=== PATIENT | female | born 1955 ===

== ENCOUNTER 2016-10-28 08:21 | Emergency (ER) | payer OTHER ==
[2016-10-28 08:29] VITALS: BMI 34.2
[2016-10-28] MEDS ORDERED: Sodium Chloride 0.9% 1,000 ML IV STA (08:52)
[2016-10-28 09:24] LABS: URINE BILIRUBIN NEGATIVE (NEGATIVE); URINE BLOOD TRACE-INTACT (NEGATIVE); URINE GLUCOSE (UA) NEGATIVE (NEGATIVE); URINE KETONE NEGATIVE (NEGATIVE); URINE LEUKOCYTE ESTERASE NEGATIVE Leu/uL (NEGATIVE); URINE PROTEIN 30 mg/dL (<30 mg/dL); URINE UROBILINOGEN 0.2 E.U./dL (<1 E.U./dL)
--- NOTE | 2016-10-28 09:33 | ED PDOC ---
Arrival/HPI - General Chief Complaint: Abdominal Pain Time Seen by Provider: 10/28/16 08:52 Historian: Patient, Family - History of Present Illness Narrative History of Present Illness (Text): 10/28/16 09:06 A 60 year old female, whose past medical history includes gastritis and cholelithiasis, presents to the emergency department complaining of nausea, vomiting and diarrhea since yesterday. Patient reports yesterday morning after eating a cheese and mayonnaise sandwich the symptoms began. She notes some blood in her stool. Patient says she has chronic left breast pain and abdominal pain during a bowel movement but denies any fever, recent sick contacts or any other complaints at this time. Patient does drinking socially but does not smoke or use drugs. PMD: None Time/Duration: 24 hours Symptom Onset: Sudden Symptom Course: Unchanged Quality: Other Activities at Onset: Rest Modifying Factors (Text): symptoms appear after eating cheese and mayonnaise sandwich Context: Home Past Medical History - Provider Review Nursing Documentation Reviewed: Yes - Cardiac Hx Cardiac Disorders: No - Pulmonary Hx Respiratory Disorders: Yes Hx Asthma: Yes - Neurological Hx Neurological Disorder: No - HEENT Hx HEENT Disorder: No - Renal Hx Renal Disorder: No - Endocrine/Metabolic Hx Endocrine Disorders: No - Hematological/Oncological Hx Blood Disorders: No - Integumentary Hx Dermatological Disorder: No - Musculoskeletal/Rheumatological Hx Musculoskeletal Disorders: No - Gastrointestinal Hx Gastrointestinal Disorders: Yes Hx Gastritis: Yes - Genitourinary/Gynecological Hx Genitourinary Disorders: No - Psychiatric Hx Psychophysiologic Disorder: No Hx Substance Use: No - Surgical History Hx Section: Yes Hx Hysterectomy: Yes Other/Comment: Unilateral oophorectomy Family/Social History - Physician Review Nursing Documentation Reviewed: Yes Family/Social History: No Known Family HX Smoking Status: Never Smoked Hx Alcohol Use: Yes Frequency of alcohol use: Socially Hx Substance Use: No Allergies/Home Meds Allergies/Adverse Reactions: Allergies aspirin Adverse Reaction (Verified 10/28/16 08:31) ANAPHYLAXIS Penicillins Adverse Reaction (Verified 10/28/16 08:31) ANAPHYLAXIS Home Medications: Home Meds Medication Instructions Recorded Confirmed Omeprazole 40 mg PO DAILY 08/19/16 10/28/16 Review of Systems - Physician Review All systems were reviewed & negative as marked: Yes - Review of Systems Constitutional: absent: Fevers Gastrointestinal: Abdominal Pain, Diarrhea, Nausea, Vomiting, Hematochezia Physical Exam Vital Signs Reviewed: Yes Vital Signs Temp Pulse Resp BP Pulse Ox 10/28/16 10:05 98.0 F 61 18 113/68 96 10/28/16 08:28 98.5 F 69 16 147/73 95 Temperature: Afebrile Blood Pressure: Normal Pulse: Regular Respiratory Rate: Normal Appearance: Positive for: Well-Appearing, Non-Toxic, Comfortable Pain Distress: None Mental Status: Positive for: Alert and Oriented X 3 - Systems Exam Head: Present: Atraumatic, Normocephalic Pupils: Present: PERRL Extroacular Muscles: Present: EOMI Conjunctiva: Present: Normal Mouth: Present: Dry Neck: Present: Normal Range of Motion Respiratory/Chest: Present: Clear to Auscultation, Good Air Exchange. No: Respiratory Distress, Accessory Muscle Use Cardiovascular: Present: Regular Rate and Rhythm, Normal S1, S2. No: Murmurs Abdomen: No: Tenderness, Distention, Normal Bowel Sounds (slight hyperactive), Peritoneal Signs, Rebound, Guarding Back: Present: Normal Inspection Upper Extremity: Present: Normal Inspection. No: Cyanosis, Edema Lower Extremity: Present: Normal Inspection. No: Edema Neurological: Present: GCS=15, CN II-XII Intact, Speech Normal Skin: Present: Warm, Dry, Normal Color. No: Rashes Psychiatric: Present: Alert, Oriented x 3, Normal Insight, Normal Concentration Medical Decision Making ED Course and Treatment: 10/28/16 09:06 Impression: A 60 year old female with nausea, vomiting, diarrhea, and hematochezia. Differential Diagnosis include but are not limited to: Gastritis vs. GI bleed Plan: -- EKG -- Labs -- Urinalysis -- Pepcid, Zofran and IV Fluids -- Reassess and disposition Prior Visits: Notes and results from previous visits were reviewed. The patient last presented to the emergency department on 08/19/16 for evaluation of chest pain. Progress Notes: EKG: Ordered, reviewed, and independently interpreted the EKG. Rate : 72 BPM Rhythm : NSR Interpretation : Left axis deviation, No ST elevations. 10/28/16 11:28 Pt feels much better. Will d/c home. - Lab Interpretations Lab Results: 10/28/16 08:50 10/28/16 08:50 Lab Results 10/28/16 09:00: Urine Color Yellow, Urine Appearance Clear, Urine pH 6.0, Ur Specific [place] 1.025, Urine Protein 30 H, Urine Glucose (UA) Negative, Urine Ketones Negative, Urine Blood Trace-intact H, Urine Nitrate Negative, Urine Bilirubin Negative, Urine Urobilinogen 0.2, Ur Leukocyte Esterase Negative, Urine RBC 1 - 3, Urine WBC 0 - 2, Ur Epithelial Cells 6 - 8, Amorphous Sediment Few, Urine Bacteria Many 10/28/16 08:50: WBC 7.4 D, RBC 4.67, Hgb 13.6, Hct 40.8, MCV 87.4, MCH 29.1, MCHC 33.3, RDW 13.0, Plt Count 247, MPV 11.0, Gran % 66.4, Lymph % (Auto) 28.2, [place] % (Auto) 4.9, Eos % (Auto) 0.4 L, Baso % (Auto) 0.1, Gran # 4.89, Lymph # 2.1, S[place]ent # 0.4, Eos # 0.0, Baso # 0.01, PT 10.7, INR 0.99, APTT 26.9, Sodium 137, Potassium 3.7, Chloride 99, Carbon Dioxide 25, Anion Gap 17, BUN 13, Creatinine 0.6, Est GFR ( Amer) > 60, Est GFR (Non-Af Amer) > 60, Random Glucose 136 H, Calcium 9.5, Total Bilirubin 1.0, AST 32, ALT 19, Alkaline Phosphatase 70, Lactate Dehydrogenase 483, Total Creatine Kinase 154, Troponin I < 0.01, Total Protein 9.1 H, Albumin 4.3, Globulin 4.8, Albumin/Globulin Ratio 0.9 L, Amylase 82, Lipase 105 I have reviewed the lab results: Yes - Medication Orders Current Medication Orders: Sodium Chloride (Sodium Chloride 0.9%) 1,000 mls @ 100 mls/hr IV .Q10H STA Stop: 10/28/16 18:51 Last Admin: 10/28/16 09:36 Dose: 100 MLS/HR eMAR Start Stop Document 10/28/16 09:36 NGOZI (Rec: 10/28/16 09:37 [id number]) Intravenous Solution Start Date 10/28/16 Start Time 09:36 Discontinued Medications Famotidine (Pepcid) 20 mg IVP STAT STA Stop: 10/28/16 09:13 Last Admin: 10/28/16 09:37 Dose: 20 MG IVP Administration Document 10/28/16 09:37 SZMel (Rec: 10/28/16 09:37 SZA [id number]) Charges for Administration # of IVP Administrations 1 Ondansetron HCl (Zofran Inj) 4 mg IVP STAT STA Stop: 10/28/16 08:53 Last Admin: 10/28/16 09:37 Dose: 4 MG IVP Administration Document 10/28/16 09:37 SZA (Rec: 10/28/16 09:37 A [id number]) Charges for Administration # of IVP Administrations 1 - Scribe Statement The provider has reviewed the documentation as recorded by the Scribe Orin Fine Provider Scribe Attestation: All medical record entries made by the Scribe were at my direction and personally dictated by me. I have reviewed the chart and agree that the record accurately reflects my personal performance of the history, physical exam, medical decision making, and the department course for this patient. I have also personally directed, reviewed, and agree with the discharge instructions and disposition. Disposition/Present on Arrival - Present on Arrival Any Indicators Present on Arrival: No History of DVT/PE: No History of Uncontrolled Diabetes: No Urinary Catheter: No History of Decub. Ulcer: No History Surgical Site Infection Following: None - Disposition Have Diagnosis and Disposition been Completed?: Yes Diagnosis: Gastroenteritis Disposition: HOME/ ROUTINE Disposition Time: 11:24 Patient Plan: Discharge Condition: STABLE Discharge Instructions (ExitCare): Gastroenteritis (ED) Print Language: IRAQI Additional Instructions: Ms. Tristan, thank you for letting us take care of you today. Return to the ER if your symptoms worsen, or if any problems. Take the medications listed below as prescribed. Follow up at our [facility] next week for a re-evaluation. Prescriptions: Omeprazole 1 tab PO DAILY #30 capsule. [place]: [facility] [place] [facility] [place] - Follow up with primary
[2016-10-28 09:35] LABS: ADD MANUAL DIFF? NO
[2016-10-28 09:38] LABS: URINE APPEARANCE CLEAR (CLEAR); URINE COLOR YELLOW (YELLOW)
[2016-10-28 09:39] LABS: BASO # 0.01 K/mm3 (0.0-2.0); BASO % 0.1 % (0.0-3.0); EOS % 0.4 % (1.5-5.0); GRAN # 4.89 (1.4-6.5); GRAN % 66.4 % (50.0-68.0); HEMATOCRIT 40.8 % (36.0-48.0); LYMPH # 2.1 (1.2-3.4); LYMPH % 28.2 % (22.0-35.0); MEAN CELL VOLUME 87.4 fL (80.0-105.0); MEAN CORPUSCULAR HEMOGLOBIN 29.1 pg (25.0-35.0); MEAN CORPUSCULAR HGB CONC 33.3 g/dl (31.0-37.0); MONO # 0.4 (0.1-0.6); MONO % 4.9 % (1.0-6.0); PLATELET COUNT 247 10^3/uL (120.0-450.0); WHITE BLOOD COUNT 7.4 10^3/ul (4.5-11.0)
[2016-10-28 09:48] LABS: ALB/GLOB RATIO 0.9 (1.1-1.8); ALKALINE PHOSPHATASE 70 U/L (38-133); ALT/SGPT 19 U/L (7-56); AMYLASE 82 U/L (35-125); AST/SGOT 32 U/L (15-39); BLOOD UREA NITROGEN 13 mg/dL (7-21); CALCIUM 9.5 mg/dL (8.4-10.5); CARBON DIOXIDE 25 mmol/L (21-33); CHLORIDE 99 mmol/L (98-107); GFR AFRICAN-AMERICAN > 60; GLUCOSE,RANDOM 136 mg/dL (70-110); INR 0.99 (0.93-1.08); LIPASE 105 U/L (23-300); PARTIAL THROMBOPLASTIN TIME 26.9 Seconds (23.7-30.8); POTASSIUM 3.7 mmol/L (3.6-5.0); SODIUM 137 mmol/L (132-148); TOTAL PROTEIN 9.1 g/dL (5.8-8.3)
[2016-10-28 09:48] LABS: URINE AMORPHOUS SEDIMENT FEW; URINE BACTERIA MANY (NEG); URINE WBC 0 - 2 /hpf (0-6)
[2016-10-28 10:01] LABS: TROPONIN I < 0.01 ng/mL
[2016-10-28 11:56] VITALS: BP 120/76; PULSE 80; RESP 16; TEMP 98.2; O2SAT 98
--- NOTE | 2016-10-28 17:28 | CARD ---
APPROVED REPORT EKG Measurement Heart [id number] <Conclusion> Normal sinus rhythm Left axis deviation T wave abnormality, consider anterior ischemia Abnormal ECG
== END 2016-10-28 12:00 | disposition home or self-care (01) ==
LOC: ED 08:21
DX: K52.9 Noninfective gastroenteritis and colitis, unspecified (principal)
CPT/HCPCS: 80053; 81001; 82150; 82550; 83615; 83690; 84484; 85025; 85610; 85730; 93005; 96361; 96374; 96375; 99283; J2405; J7040

== ENCOUNTER 2017-01-12 06:35 | Emergency (ER) | payer OTHER ==
[2017-01-12 06:36] VITALS: BMI 34.2
[2017-01-12 06:45] VITALS: BP 127/76; PULSE 62; RESP 16; TEMP 98.5; O2SAT 96
--- NOTE | 2017-01-12 08:04 | ED PDOC ---
Arrival/HPI - General Chief Complaint: Back Pain Time Seen by Provider: 01/12/17 07:22 Historian: Patient, Supervisor [employer] (Nurse Calderon) - History of Present Illness Symptom Onset: Sudden Symptom Course: Unchanged Activities at Onset: Rest Context: Home Past Medical History - Provider Review Nursing Documentation Reviewed: Yes - Cardiac Hx Cardiac Disorders: No - Pulmonary Hx Respiratory Disorders: Yes Hx Asthma: Yes - Neurological Hx Neurological Disorder: No - HEENT Hx HEENT Disorder: No - Renal Hx Renal Disorder: No - Endocrine/Metabolic Hx Endocrine Disorders: No - Hematological/Oncological Hx Blood Disorders: No - Integumentary Hx Dermatological Disorder: No - Musculoskeletal/Rheumatological Hx Musculoskeletal Disorders: No - Gastrointestinal Hx Gastrointestinal Disorders: Yes Hx Gastritis: Yes - Genitourinary/Gynecological Hx Genitourinary Disorders: No - Psychiatric Hx Psychophysiologic Disorder: No Hx Substance Use: No - Surgical History Hx Section: Yes Hx Hysterectomy: Yes Other/Comment: Unilateral oophorectomy Family/Social History - Physician Review Nursing Documentation Reviewed: Yes Family/Social History: No Known Family HX Smoking Status: Never Smoked Hx Alcohol Use: Yes Hx Substance Use: No Allergies/Home Meds Allergies/Adverse Reactions: Allergies aspirin Adverse Reaction (Verified 10/28/16 08:31) ANAPHYLAXIS Penicillins Adverse Reaction (Verified 10/28/16 08:31) ANAPHYLAXIS Home Medications: Home Meds Medication Instructions Recorded Confirmed Omeprazole 40 mg PO DAILY 08/19/16 10/28/16 Review of Systems - Physician Review All systems were reviewed & negative as marked: Yes Physical Exam Vital Signs Reviewed: Yes Vital Signs Temp Pulse Resp BP Pulse Ox 01/12/17 06:44 98.5 F 62 16 127/76 96 Temperature: Afebrile Blood Pressure: Normal Pulse: Regular Respiratory Rate: Normal Appearance: Positive for: Well-Appearing, Non-Toxic, Comfortable Pain Distress: None Mental Status: Positive for: Alert and Oriented X 3 Medical Decision Making ED Course and Treatment: 01/12/17 08:01 Impression: A 61 year old female with hip pain radiating to legs. Plan: -- Toradol, Flexeril -- Reassess and disposition Prior Visits: Notes and results from previous visits were reviewed. Patient last reported to the emergency department on 10/28/16 for evaluation of nausea, vomiting, diarrhea and hematochezia. Progress Notes: - Medication Orders Current Medication Orders: Discontinued Medications Cyclobenzaprine HCl (Flexeril) 10 mg PO STAT STA Stop: 01/12/17 07:47 Last Admin: 01/12/17 07:52 Dose: 10 mg Ketorolac Tromethamine (Toradol) 30 mg IM STAT STA Stop: 01/12/17 07:47 Last Admin: 01/12/17 07:52 Dose: 30 mg - Scribe Statement The provider has reviewed the documentation as recorded by the Lupis Shah Provider Scribe Attestation: All medical record entries made by the Lupis were at my direction and personally dictated by me. I have reviewed the chart and agree that the record accurately reflects my personal performance of the history, physical exam, medical decision making, and the department course for this patient. I have also personally directed, reviewed, and agree with the discharge instructions and disposition. Disposition/Present on Arrival - Present on Arrival History of DVT/PE: No History of Uncontrolled Diabetes: No Urinary Catheter: No History of Decub. Ulcer: No History Surgical Site Infection Following: None - Disposition
--- NOTE | 2017-01-12 08:05 | ED PDOC ---
Arrival/HPI - General Chief Complaint: Back Pain Time Seen by Provider: 01/12/17 07:22 - History of Present Illness Narrative History of Present Illness (Text): 01/12/17 08:05 Patient presents complaining of back pain. States the location is in the lower region, feels like muscle spasms. Worst with movement and palpation. Pt states this feels identical to previous back pain quality that have happened in the past. states the pain is in the left lower lumbar region, radiating to her LLE. Denies fevers/chills, denies IVDA, denies any lower extremity weakness/numbness/ paresthesias. Pt denies saddle anesthesia. Denies any urinary freq or retention. Denies bowel dysfunction/irregularity/incontinence/constipation. Past Medical History - Provider Review Nursing Documentation Reviewed: Yes - Cardiac Hx Cardiac Disorders: No - Pulmonary Hx Respiratory Disorders: Yes Hx Asthma: Yes - Neurological Hx Neurological Disorder: No - HEENT Hx HEENT Disorder: No - Renal Hx Renal Disorder: No - Endocrine/Metabolic Hx Endocrine Disorders: No - Hematological/Oncological Hx Blood Disorders: No - Integumentary Hx Dermatological Disorder: No - Musculoskeletal/Rheumatological Hx Musculoskeletal Disorders: No - Gastrointestinal Hx Gastrointestinal Disorders: Yes Hx Gastritis: Yes - Genitourinary/Gynecological Hx Genitourinary Disorders: No - Psychiatric Hx Psychophysiologic Disorder: No Hx Substance Use: No - Surgical History Hx Section: Yes Hx Hysterectomy: Yes Other/Comment: Unilateral oophorectomy Family/Social History Family/Social History: Unknown Family HX Smoking Status: Never Smoked Hx Alcohol Use: Yes Hx Substance Use: No Allergies/Home Meds Allergies/Adverse Reactions: Allergies aspirin Adverse Reaction (Verified 10/28/16 08:31) ANAPHYLAXIS Penicillins Adverse Reaction (Verified 10/28/16 08:31) ANAPHYLAXIS Home Medications: Home Meds Medication Instructions Recorded Confirmed Omeprazole 40 mg PO DAILY 08/19/16 10/28/16 Physical Exam - Physical Exam Narrative Physical Exam (Text): - Review of Systems Constitutional: Normal. absent: Fatigue, Weight Change, Fevers Eyes: Normal ENT: denies sore throat, denies tristhmus Respiratory: Normal. absent: SOB, Cough, Sputum Cardiovascular: absent: Chest Pain, Palpitations, Syncope Gastrointestinal: Normal. absent: Abdominal Pain, Diarrhea, Nausea, Vomiting Genitourinary: Normal. absent: Dysuria, Frequency, Hematuria Musculoskeletal: back pain. absent: Arthralgias, Neck Pain Skin: no rashes, no erythema Neurological: absent: Focal Weakness Endocrine: Normal Hemo/Lymphatic: Normal Psychiatric: No suicidal or homicidal ideations Physical exam Patient appears age appropriate in no distress, speaking full sentences without difficulty Increased hypertonicity appreciated in the left lower lumbar region, pain quality reproduced with palpation. No midline tenderness. FROM of pt's cervical , thoracic, lumbar, and sacral regions appreciated, active/passive without any difficulty. Lower extremities with full neurological and vascular intact. Steady gait. - Systems Exam Head: Present: Atraumatic, Normocephalic Pupils: Present: PERRL Extroacular Muscles: Present: EOMI Conjunctiva: Present: Normal Mouth: Present: Moist Mucous Membranes Neck: Present: Normal Range of Motion. No: MIDLINE TENDERNESS, Paraspinal Tenderness Respiratory/Chest: Present: Clear to Auscultation, Good Air Exchange. No: Respiratory Distress, Accessory Muscle Use, Tachypneic Cardiovascular: Present: Regular Rate and Rhythm, Normal S1, S2, Peripheal Pulses Present. No: Murmurs Abdomen: Present: Normal Bowel Sounds. No: Tenderness, Distention, Peritoneal Signs, Rebound, Guarding Back: No: Midline Tenderness Upper Extremity: Present: Normal Inspection. No: Cyanosis, Edema Lower Extremity: Present: Normal Inspection. No: Edema Neurological: Present: GCS=15, Speech Normal, cranial nerves II through XII fully intact with no cerebellar abnormality, neurosensory fully intact. No focal neurological deficits. Skin: Present: Warm, Dry, Normal Color. No: Rashes Lymphatic: Present: OX3, NI, NC Psychiatric: Present: Alert, Oriented x 3, Normal Insight, Normal Concentration Vital Signs Reviewed: Yes Vital Signs Temp Pulse Resp BP Pulse Ox 01/12/17 06:44 98.5 F 62 16 127/76 96 Temperature: Afebrile Blood Pressure: Normal Pulse: Regular Respiratory Rate: Normal Appearance: Positive for: Well-Appearing Pain Distress: None Mental Status: Positive for: Alert and Oriented X 3 Medical Decision Making ED Course and Treatment: pt received Toradol and Flexeril, reported symptomatic relief. Pt states is not driving home. Based on hx and physical, no suspicion for renal involvement, cord impingement or epidural/spinal abscess stable for dc home. instructed not to drive/operate machinery/drink/do drugs with medication in the chart it is noted that patient has an allergy to aspirin. Clarified with pt, she states it is not an allergy, but a stomach ache. Denies any anaphylaxis reactions to nasaids or salicylates. Pt verbalized understands to return to the ER right away for new or worsening symptoms or for inability to f/u with PMD or specialist as instructed. Patient verbalized full agreement with and understanding of discharge instructions. States that he agrees with the plan and disposition. Verbalized and repeated discharge instructions and plan. I have given the patient opportunity to ask any additional questions. - Medication Orders Current Medication Orders: Discontinued Medications Cyclobenzaprine HCl (Flexeril) 10 mg PO STAT STA Stop: 01/12/17 07:47 Last Admin: 01/12/17 07:52 Dose: 10 mg Ketorolac Tromethamine (Toradol) 30 mg IM STAT STA Stop: 01/12/17 07:47 Last Admin: 01/12/17 07:52 Dose: 30 mg Disposition/Present on Arrival - Present on Arrival Any Indicators Present on Arrival: No History of DVT/PE: No History of Uncontrolled Diabetes: No Urinary Catheter: No History of Decub. Ulcer: No History Surgical Site Infection Following: None - Disposition Have Diagnosis and Disposition been Completed?: Yes Diagnosis: Back pain Disposition: HOME/ ROUTINE Disposition Time: 08:01 Patient Plan: Discharge Patient Problems: Current Active Problems Problem Status Onset Back pain Acute Condition: GOOD Discharge Instructions (ExitCare): Back Pain (ED) Additional Instructions: PLEASE RETURN TO THE EMERGENCY DEPARTMENT FOR NEW OR WORSENING SYMPTOMS. RETURN RIGHT AWAY IF YOU CANNOT FOLLOW UP WITH YOUR PRIMARY CARE DOCTOR, CLINIC, OR SPECIALIST IN 1-2 DAYS. Prescriptions: Cyclobenzaprine [Flexeril] 5 mg PO BID #10 tab Ibuprofen [Motrin] 600 mg PO Q8 PRN #12 tab PRN Reason: Pain, Moderate (4-7) Referrals: Daron Kellogg DO [Staff Provider] - Follow up with primary
== END 2017-01-12 08:11 | disposition home or self-care (01) ==
LOC: ED 06:35
DX: M54.9 Dorsalgia, unspecified (principal)
CPT/HCPCS: 96372; 99283; J1885

== ENCOUNTER 2017-01-13 09:02 | Emergency (ER) | payer OTHER ==
[2017-01-13 09:03] VITALS: BMI 34.2
[2017-01-13] MEDS ORDERED: Lidocaine 5% Patch TD STA (09:30)
[2017-01-13] MEDS ORDERED: Oxycodone/Acetaminophen 5/325 mg Tab PO STA (09:30)
--- NOTE | 2017-01-13 09:34 | ED PDOC ---
Arrival/HPI - General Chief Complaint: Back Pain Time Seen by Provider: 01/13/17 09:26 Historian: Patient - History of Present Illness Narrative History of Present Illness (Text): 01/13/17 09:32 61 y/o female, allergic to the aspirin, c/o lt. lower back pain x 2 days after bending down. Aching pain, aggravated by movement, no numbness or tingling, mild radiating to the lt. thigh region, no urinary or bowel incontinence or retention. Pt. was seen in the ER yesterday for the same problem but stated that the pain has not completely resolve today. Pt. has no urinary symptoms, no headache or neck pain, no chest pain or shortness of breath, no other medical or psychological complaints. Past Medical History - Provider Review Nursing Documentation Reviewed: Yes - Cardiac Hx Cardiac Disorders: No - Pulmonary Hx Asthma: Yes - Neurological Hx Neurological Disorder: No - HEENT Hx HEENT Disorder: No - Renal Hx Renal Disorder: No - Endocrine/Metabolic Hx Endocrine Disorders: No - Hematological/Oncological Hx Blood Disorders: No - Integumentary Hx Dermatological Disorder: No - Musculoskeletal/Rheumatological Hx Arthritis: Yes - Gastrointestinal Hx Gastrointestinal Disorders: Yes Hx Gastritis: Yes - Genitourinary/Gynecological Hx Genitourinary Disorders: No - Psychiatric Hx Psychophysiologic Disorder: No Hx Substance Use: No - Surgical History Hx Hysterectomy: Yes Other/Comment: Unilateral oophorectomy Family/Social History - Physician Review Nursing Documentation Reviewed: Yes Family/Social History: Unknown Family HX Smoking Status: Never Smoked Hx Alcohol Use: Yes Hx Substance Use: No Allergies/Home Meds Allergies/Adverse Reactions: Allergies aspirin Adverse Reaction (Verified 01/13/17 09:15) ANAPHYLAXIS Review of Systems - Review of Systems Constitutional: absent: Fatigue, Fevers Eyes: absent: Vision Changes ENT: absent: Hearing Changes Respiratory: absent: SOB, Cough Cardiovascular: absent: Chest Pain Gastrointestinal: absent: Abdominal Pain, Nausea, Vomiting Musculoskeletal: Back Pain. absent: Arthralgias, Neck Pain, Joint Swelling, Myalgias Skin: absent: Rash, Pruritis, Skin Lesions Neurological: absent: Headache, Dizziness, Focal Weakness Physical Exam Vital Signs Reviewed: Yes Vital Signs Temp Pulse Resp BP Pulse Ox 01/13/17 11:09 98 F 66 18 129/72 99 01/13/17 09:15 98.6 F 67 16 116/78 97 Temperature: Afebrile Blood Pressure: Normal Pulse: Regular Respiratory Rate: Normal Appearance: Positive for: Well-Appearing, Non-Toxic, Comfortable Pain Distress: Moderate Mental Status: Positive for: Alert and Oriented X 3 - Systems Exam Head: Present: Atraumatic, Normocephalic Pupils: Present: PERRL Extroacular Muscles: Present: EOMI Conjunctiva: Present: Normal Mouth: Present: Moist Mucous Membranes Neck: Present: Normal Range of Motion Respiratory/Chest: Present: Clear to Auscultation, Good Air Exchange. No: Respiratory Distress, Accessory Muscle Use Cardiovascular: Present: Regular Rate and Rhythm, Normal S1, S2. No: Murmurs Abdomen: Present: Normal Bowel Sounds. No: Tenderness, Distention, Peritoneal Signs Back: Present: Normal Inspection, Other (LS spine: +ttp on the lt. paraspinal muscle region, no midline tenderness or step off, no cva tenderness, FROM without limtiation, sensation intact, motor 5/5, no saddling gait, SLR test negative. ). No: Pain with Leg Raise, Decubitus Ulcer Upper Extremity: Present: Normal Inspection. No: Cyanosis, Edema Lower Extremity: Present: Normal Inspection. No: Edema Neurological: Present: GCS=15, CN II-XII Intact, Speech Normal Skin: Present: Warm, Dry, Normal Color. No: Rashes Psychiatric: Present: Alert, Oriented x 3, Normal Insight, Normal Concentration Medical Decision Making ED Course and Treatment: 01/13/17 09:34 -percocet -Lidoderm patch -LS spine xray -Discharge home with lidoderm patch, heat compression, follow up with your own pmd and pain management within 2 days, return to the ER for any new or worsening signs or symptoms. 01/13/17 10:33 -Xray show no fracture or subluxation, +degenerative joint changes noted. - RAD Interpretation Radiology Orders: 01/13/17 09:30 LS SPINE WITH OBL > 18 YRS OLD [RAD] Stat Disc degenerative [id number] Tuyere Fitter: Radiologist - Medication Orders Current Medication Orders: Discontinued Medications Lidocaine (Lidoderm) 1 ea TD ONCE STA Stop: 01/13/17 09:31 Last Admin: 01/13/17 10:25 Dose: 1 ea Oxycodone/Acetaminophen (Percocet 5/325 Mg Tab) 1 tab PO STAT STA Stop: 01/13/17 09:31 Last Admin: 01/13/17 10:24 Dose: 1 tab - PA / DRAPERY CUTTER MACHINE / Resident Statement MD/DO has reviewed & agrees with the documentation as recorded. Disposition/Present on Arrival - Present on Arrival Any Indicators Present on Arrival: No History of DVT/PE: No History of Uncontrolled Diabetes: No Urinary Catheter: No History of Decub. Ulcer: No History Surgical Site Infection Following: None - Disposition Have Diagnosis and Disposition been Completed?: Yes Diagnosis: Osteoarthritis, Lower back pain Disposition: HOME/ ROUTINE Disposition Time: 10:35 Patient Plan: Discharge Condition: IMPROVED Discharge Instructions (ExitCare): Acute Low Back Pain (ED) Print Language: CENTRAL AFRICAN Additional Instructions: Discharge home with lidoderm patch, heat compression, follow up with your own pmd and pain management within 2 days, return to the ER for any new or worsening signs or symptoms. Prescriptions: Lidocaine 5% [Lidoderm] 1 patch TP DAILY #14 patch Referrals: Mason Aguilera MD [Staff Provider] - [place] up with primary [facility] [place] [facility] [place] - Follow up with primary Forms: WORK NOTE
[2017-01-13 11:11] VITALS: BP 129/72; PULSE 66; RESP 18; TEMP 98; O2SAT 99
--- NOTE | 2017-01-13 12:21 | RAD ---
PROCEDURE: Radiographs of the Lumbar Spine. HISTORY: lower back pain x 3 days COMPARISON: No prior. FINDINGS: BONES: Normal alignment. No listhesis. No fracture. DISC SPACES: Disc degeneration at L5-S1 OTHER FINDINGS: None. IMPRESSION: Disc degeneration at L5-S1
== END 2017-01-13 11:11 | disposition home or self-care (01) ==
LOC: ED 09:02
DX: M54.5 Low back pain (principal); M19.90 Unspecified osteoarthritis, unspecified site

== ENCOUNTER 2017-03-24 00:34 | Emergency (ER) | payer SELFPAY ==
[2017-03-24 00:43] VITALS: BMI 33.5
[2017-03-24 00:52] VITALS: RESP 18; TEMP 98
[2017-03-24] MEDS ORDERED: Oxycodone/Acetaminophen 5/325 mg Tab PO STA (01:08)
--- NOTE | 2017-03-24 01:12 | ED PDOC ---
Arrival/HPI - General Chief Complaint: Upper Extremity Problem/Injury Time Seen by Provider: 03/24/17 00:59 Historian: Patient - History of Present Illness Narrative History of Present Illness (Text): 03/24/17 01:08 Romina Tristan is a 61 year old female, whose past medical history includes gastritis and left shoulder bursitis, who presents to the Emergency department complaining of right shoulder pain. Patient states tonight she developed right shoulder, worsened with movement. 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 Patient denies any weakness/numbness/tingling in the extremity, chest pain, shortness of breath, back pain, neck pain, headache, dizziness, or any other complaints. Time/Duration: Other (tonight) Symptom Onset: Gradual Symptom Course: Unchanged Activities at Onset: Rest, Light Context: Home Past Medical History - Provider Review Nursing Documentation Reviewed: Yes - Cardiac Hx Cardiac Disorders: No - Pulmonary Hx Asthma: Yes - Neurological Hx Neurological Disorder: No Hx Migraine: Yes - HEENT Hx HEENT Disorder: No - Renal Hx Renal Disorder: No - Endocrine/Metabolic Hx Endocrine Disorders: Yes Other/Comment: Thyriod d/o - Hematological/Oncological Hx Blood Disorders: No - Integumentary Hx Dermatological Disorder: No - Musculoskeletal/Rheumatological Hx Arthritis: Yes - Gastrointestinal Hx Gastrointestinal Disorders: Yes Hx Gastritis: Yes - Genitourinary/Gynecological Hx Genitourinary Disorders: No - Psychiatric Hx Psychophysiologic Disorder: No Hx Substance Use: No - Surgical History Hx Dilation and Curettage: Yes Hx Hysterectomy: Yes Other/Comment: Unilateral oophorectomy Family/Social History - Physician Review Nursing Documentation Reviewed: Yes Family/Social History: Unknown Family HX Smoking Status: Never Smoked Hx Alcohol Use: Yes Frequency of alcohol use: Socially Hx Substance Use: No Allergies/Home Meds Allergies/Adverse Reactions: Allergies aspirin Adverse Reaction (Intermediate, Verified 03/24/17 01:08) PAIN Stomach pain Review of Systems - Physician Review All systems were reviewed & negative as marked: Yes - Review of Systems Constitutional: Normal. absent: Fevers Eyes: Normal ENT: Normal Respiratory: Normal. absent: SOB, Cough Cardiovascular: Normal. absent: Chest Pain Gastrointestinal: Normal. absent: Abdominal Pain, Diarrhea, Nausea, Vomiting Genitourinary Female: Normal. absent: Dysuria, Frequency, Hematuria, Urine Output Changes Musculoskeletal: Arthralgias (+right shoulder pain) Skin: Normal Neurological: Normal Endocrine: Normal Hemo/Lymphatic: Normal Psychiatric: Normal Physical Exam Vital Signs Reviewed: Yes Vital Signs Temp Pulse Resp BP Pulse Ox 03/24/17 00:52 98.0 F 66 18 130/78 95 Temperature: Afebrile Blood Pressure: Normal Pulse: Regular Respiratory Rate: Normal Appearance: Positive for: Well-Appearing, Non-Toxic, Comfortable Pain Distress: None Mental Status: Positive for: Alert and Oriented X 3 - Systems Exam Head: Present: Atraumatic, Normocephalic Pupils: Present: PERRL Extroacular Muscles: Present: EOMI Conjunctiva: Present: Normal Mouth: Present: Moist Mucous Membranes Neck: Present: Normal Range of Motion Respiratory/Chest: Present: Clear to Auscultation, Good Air Exchange. No: Respiratory Distress, Accessory Muscle Use Cardiovascular: Present: Regular Rate and Rhythm, Normal S1, S2. No: Murmurs Abdomen: Present: Normal Bowel Sounds. No: Tenderness, Distention, Peritoneal Signs Back: Present: Normal Inspection Upper Extremity: Present: NORMAL PULSES, Tenderness (Palpable tenderness to right anterior shoulder), Neurovascularly Intact, Capillary Refill < 2s. No: Cyanosis, Edema, Normal ROM (Pain with abduction of right shoulder), Swelling, Erythema, Temperature Abnormalties, Deformity Lower Extremity: Present: Normal Inspection. No: Edema Neurological: Present: GCS=15, CN II-XII Intact, Speech Normal Skin: Present: Warm, Dry, Normal Color. No: Rashes Psychiatric: Present: Alert, Oriented x 3, Normal Insight, Normal Concentration Medical Decision Making ED Course and Treatment: 03/24/17 01:08 Impression: 61 year old female complaining of right shoulder pain, worse with movement, tonight. Differential Diagnosis included but are not limited to: bursitis vs. strain vs. tendonitis Plan: -- XR Right Shoulder -- Percocet -- Toradol -- Reassess and disposition Prior Visits: Notes and results from previous visits were reviewed. On 01/13/2017, pt was seen in the Emergency department for left lower back pain. Pt was d/c home. Progress Notes: 03/24/17 02:33 Reviewed radiology, XR Right Shoulder shows no acute processes. 03/24/17 03:13 On reevaluation the patient feels better and is in no acute distress. I have discussed the results and plan with the patient, who expresses understanding. Patient given the opportunity to ask question, all questions were answered and there is agreement with the plan to discharge the patient home. Patient is stable for discharge. Patient was instructed to follow up with physician/ orthopedist/clinic in 1-2 days or return if symptoms persist/worsen or new concerning symptoms arise. - RAD Interpretation Radiology Orders: 03/24/17 01:10 SHOULDER RIGHT [RAD] Stat Soda Column Operator: ED Physician - Medication Orders Current Medication Orders: Discontinued Medications Ketorolac Tromethamine (Toradol) 60 mg IM ONCE ONE Stop: 03/24/17 01:09 Last Admin: 03/24/17 01:17 Dose: 60 mg Oxycodone/Acetaminophen (Percocet 5/325 Mg Tab) 1 tab PO STAT STA Stop: 03/24/17 01:09 Last Admin: 03/24/17 01:21 Dose: 1 tab - Scribe Statement The provider has reviewed the documentation as recorded by the Lupis Mason Provider Scribe Attestation: All medical record entries made by the Scribe were at my direction and personally dictated by me. I have reviewed the chart and agree that the record accurately reflects my personal performance of the history, physical exam, medical decision making, and the department course for this patient. I have also personally directed, reviewed, and agree with the discharge instructions and disposition. Disposition/Present on Arrival - Present on Arrival Any Indicators Present on Arrival: No History of DVT/PE: No History of Uncontrolled Diabetes: No Urinary Catheter: No History of Decub. Ulcer: No History Surgical Site Infection Following: None - Disposition Have Diagnosis and Disposition been Completed?: Yes Diagnosis: Shoulder bursitis Disposition: HOME/ ROUTINE Disposition Time: 03:13 Patient Plan: Discharge Patient Problems: Current Active Problems Problem Status Onset Shoulder bursitis Acute Condition: GOOD Discharge Instructions (ExitCare): Shoulder Bursitis (ED) Additional Instructions: Take meds as prescribed/follow up with the orthopedist this week Prescriptions: Omeprazole 40 mg PO DAILY #30 capsule. Tramadol HCl [Ultram] 50 mg PO Q6 PRN #16 tab PRN Reason: Pain, Moderate (4-7) Referrals: Mason Aguilera MD [Staff Provider] - Follow up with primary Forms: [employer] (Gabonese)
[2017-03-24 03:33] VITALS: BP 114/70; PULSE 83; O2SAT 99
--- NOTE | 2017-03-24 07:13 | RAD ---
PROCEDURE: Radiographs of the Right Shoulder HISTORY: pain COMPARISON: No prior. FINDINGS: BONES: . No fracture. JOINTS: Glenohumeral and acromioclavicular minimal osteoarthritis. SOFT TISSUES: Normal. OTHER FINDINGS: 7 mm os ossific like density projects anterior to the here small head, above the coronoid process and below the lateral clavicle -loose body possible IMPRESSION: No fracture or lytic lesion. Apparent loose body -glenohumeral joint per transscapular Y-view Minimal osteoarthrosis
== END 2017-03-24 03:33 | disposition home or self-care (01) ==
LOC: ED 00:34
DX: M75.51 Bursitis of right shoulder (principal)
CPT/HCPCS: 73030; 96372; 99283; J1885

== ENCOUNTER 2018-05-09 16:22 | Emergency (ER) | payer SELFPAY ==
[2018-05-09 16:22] VITALS: BMI 33.5
[2018-05-09 19:02] VITALS: BP 132/88; RESP 18; TEMP 98.1; O2SAT 99
[2018-05-09] MEDS ORDERED: Lidocaine 5% Patch TD STA (19:05)
--- NOTE | 2018-05-09 19:29 | ED PDOC ---
Arrival/HPI - General Chief Complaint: Back Pain Time Seen by Provider: 05/09/18 18:40 Historian: Patient - History of Present Illness Narrative History of Present Illness (Text): 05/09/18 19:05 62 y/o female, with past medical history of gastritis and arthritis to lower back, allergic to aspirin, presents to the Emergency Department complaining of right sided lower back pain since 3 weeks. Patient informs worsening aching ramon n, radiating to her right buttocks prompting her to present to the Emergency Department for medical evaluation. Patient states taking over the counter Tylenol and ibuprofen with mild improvement to symptoms. Patient denies any numbness or tingling, urinary or bowel incontinence or retention. Patient denies any urinary symptoms, headache or neck pain, chest pain or shortness of breath, fever, chills, nausea, vomiting, abdominal pain, dizziness or any other medical or psychological complaints. Time/Duration: > week Symptom Onset: Gradual Symptom Course: Unchanged Quality: Aching Activities at Onset: Light Context: Home Past Medical History - Provider Review Nursing Documentation Reviewed: Yes - Infectious Disease Hx of Infectious Diseases: None - Reproductive Menopause: Yes - Cardiac Hx Cardiac Disorders: No - Pulmonary Hx Respiratory Disorders: No Hx Asthma: Yes - Neurological Hx Neurological Disorder: No Hx Migraine: Yes - HEENT Hx HEENT Disorder: No - Renal Hx Renal Disorder: No - Endocrine/Metabolic Hx Endocrine Disorders: Yes Other/Comment: Thyriod d/o - Hematological/Oncological Hx Blood Disorders: No - Integumentary Hx Dermatological Disorder: No - Musculoskeletal/Rheumatological Hx Musculoskeletal Disorders: Yes Hx Arthritis: Yes - Gastrointestinal Hx Gastrointestinal Disorders: Yes Hx Gastritis: Yes - Genitourinary/Gynecological Hx Genitourinary Disorders: No - Psychiatric Hx Psychophysiologic Disorder: No Hx Substance Use: No - Surgical History Hx Dilation and Curettage: Yes Hx Hysterectomy: Yes Other/Comment: Unilateral oophorectomy - Anesthesia Hx Anesthesia: No Family/Social History - Physician Review Nursing Documentation Reviewed: Yes Family/Social History: No Known Family HX Smoking Status: Never Smoked Hx Alcohol Use: Yes Hx Substance Use: No Allergies/Home Meds Allergies/Adverse Reactions: Allergies aspirin Adverse Reaction (Intermediate, Verified 09/05/17 17:03) PAIN Stomach pain Review of Systems - Physician Review All systems were reviewed & negative as marked: Yes - Review of Systems Constitutional: absent: Fevers Respiratory: absent: SOB, Cough Cardiovascular: absent: Chest Pain, SHELBY Gastrointestinal: absent: Abdominal Pain, Diarrhea, Nausea, Vomiting Musculoskeletal: Back Pain. absent: Neck Pain Neurological: absent: Headache, Dizziness Physical Exam Vital Signs Reviewed: Yes Vital Signs Temp Pulse Resp BP Pulse Ox 05/09/18 18:14 98.1 F 66 18 132/88 99 Temperature: Afebrile Blood Pressure: Normal Pulse: Regular Respiratory Rate: Normal Appearance: Positive for: Well-Appearing, Non-Toxic, Comfortable Pain Distress: None Mental Status: Positive for: Alert and Oriented X 3 - Systems Exam Head: Present: Atraumatic, Normocephalic Pupils: Present: PERRL Extroacular Muscles: Present: EOMI Conjunctiva: Present: Normal Mouth: Present: Moist Mucous Membranes Neck: Present: Normal Range of Motion Respiratory/Chest: Present: Clear to Auscultation, Good Air Exchange. No: Respiratory Distress, Accessory Muscle Use Cardiovascular: Present: Regular Rate and Rhythm, Normal S1, S2. No: Murmurs Abdomen: No: Tenderness, Distention, Peritoneal Signs Back: Present: Paraspinal Tenderness (Paralumbar tenderness) Upper Extremity: Present: Normal Inspection. No: Cyanosis, Edema Lower Extremity: Present: Normal Inspection. No: Edema Neurological: Present: GCS=15, CN II-XII Intact, Speech Normal Skin: Present: Warm, Dry, Normal Color. No: Rashes Psychiatric: Present: Alert, Oriented x 3, Normal Insight, Normal Concentration Medical Decision Making ED Course and Treatment: 05/09/18 19:05 Patient previous medical records were reviewed. X-ray of the lumbar spine performed on 01/13/17 showed disc degeneration to L5 and S1. Impression: 62 year old female presents to the Emergency Department complaining lower back pain. Plan: -- Flexeril -- Lidocaine -- Toradol -- Reassess and disposition Prior Visits: Notes and results from previous visits were reviewed. Progress Notes: Patient reports that the pain is improving, she reports no allergy to IM toradol given. Advised to follow up with primary care physician or referral provided in 1-2 days without fail. Advised to take medication as prescribed. Return to the emergency room at any time for any new or worsening symptoms. Patient states she fully agrees with and understands discharge instructions. States that she agrees with the plan and disposition. Verbalized and repeated discharge instructions and plan. I have given the patient opportunity to ask any additional questions. - Medication Orders Current Medication Orders: Discontinued Medications Cyclobenzaprine HCl (Flexeril) 10 mg PO STAT STA Stop: 05/09/18 19:06 Ketorolac Tromethamine (Toradol) 60 mg IM STAT STA Stop: 05/09/18 19:06 Lidocaine (Lidoderm) 1 ea TD STAT STA Stop: 05/09/18 19:06 - PA / INDUSTRIAL MAINTENANCE MANAGER / Resident Statement MD/DO has reviewed & agrees with the documentation as recorded. - Scribe Statement The provider has reviewed the documentation as recorded by the Scribe Raz Conklin. All medical record entries made by the Scribe were at my direction and personally dictated by me. I have reviewed the chart and agree that the record accurately reflects my personal performance of the history, physical exam, medical decision making, and the department course for this patient. I have also personally directed, reviewed, and agree with the discharge instructions and disposition. Disposition/Present on Arrival - Present on Arrival Any Indicators Present on Arrival: No History of DVT/PE: No History of Uncontrolled Diabetes: No Urinary Catheter: No History of Decub. Ulcer: No History Surgical Site Infection Following: None - Disposition Have Diagnosis and Disposition been Completed?: Yes Diagnosis: Sciatica Disposition: HOME/ ROUTINE Disposition Time: 19:45 Patient Plan: Discharge Patient Problems: Current Active Problems Problem Status Onset Sciatica Acute Condition: STABLE Discharge Instructions (ExitCare): Sciatica (DC) Print Language: ARABIC Additional Instructions: Thank you for letting us take care of you today. You were treated for sciatica. The emergency medical care you received today was directed at your acute symptoms. If you were prescribed any medication, please fill it and take as directed. It may take several days for your symptoms to resolve. Return to the Emergency Department if your symptoms worsen, do not improve, or if you have any other problems. Please contact your doctor or call one of the physicians/clinics you have been referred to that are listed on the Patient Visit Information form that is included in your discharge packet. Bring any paperwork you were given at discharge with you along with any medications you are taking to your follow up visit. Our treatment cannot replace ongoing medical care by a primary care provider outside of the emergency department. Thank you for allowing the [facility] team to be part of your care today. Prescriptions: Cyclobenzaprine [Cyclobenzaprine HCl] 10 mg PO TID PRN #15 tab PRN Reason: Pain, Moderate (4-7) Lidocaine 5% [Lidoderm] 1 ea TD Q12H PRN #20 patch PRN Reason: Pain, Moderate (4-7) Meloxicam [Mobic] 15 mg PO DAILY #20 tab Referrals: [facility] at [facility] [place]Outside] - Follow up with primary Forms: [facility] (French), WORK NOTE
[2018-05-10 05:34] VITALS: PULSE 75
== END 2018-05-09 21:00 | disposition home or self-care (01) ==
LOC: ED 16:22
DX: M54.30 Sciatica, unspecified side (principal)
CPT/HCPCS: 96372; 99282; J1885

== ENCOUNTER 2018-09-06 07:48 | Outpatient (CLI) | payer OTHER | END 2018-09-06 07:49 | disposition home or self-care (01) | LOC: LAB 07:48 ==

== ENCOUNTER 2018-09-06 08:10 | Emergency (ER) | payer OTHER ==
[2018-09-06 08:54] VITALS: TEMP 98.7
[2018-09-06 08:55] VITALS: BMI 34.8
--- NOTE | 2018-09-06 10:14 | ED PDOC ---
Arrival/HPI - General Chief Complaint: Hip Pain Time Seen by Provider: 09/06/18 09:09 Historian: Patient - History of Present Illness Narrative History of Present Illness (Text): 09/06/18 10:08 62yo female with pmhx of hypertension who present with complaint of lower back pain that radiates down her right leg x weeks, but became worse a week ago. Notes worse pain with movement. states she is not on any analgesic. she have seen her Doctor and here in ED for same complaint. States she had LS xray and was told she have arthritis on her spine. she denies trauma, urinary symptoms, hematuria, abdominal pain, focal weakness, urinary/fecal incontinence, fever, chi Past Medical History - Provider Review Nursing Documentation Reviewed: Yes - Infectious Disease Hx of Infectious Diseases: None - Cardiac Hx Cardiac Disorders: No - Pulmonary Hx Asthma: Yes - Neurological Hx Migraine: Yes - HEENT Hx HEENT Disorder: No - Renal Hx Renal Disorder: No - Endocrine/Metabolic Hx Endocrine Disorders: Yes Other/Comment: Thyriod d/o - Hematological/Oncological Hx Blood Disorders: No - Integumentary Hx Dermatological Disorder: No - Musculoskeletal/Rheumatological Hx Arthritis: Yes - Gastrointestinal Hx Gastritis: Yes - Genitourinary/Gynecological Hx Genitourinary Disorders: No - Psychiatric Hx Psychophysiologic Disorder: No Hx Substance Use: No - Surgical History Hx Dilation and Curettage: Yes Hx Hysterectomy: Yes Other/Comment: Unilateral oophorectomy - Anesthesia Hx Anesthesia: No Family/Social History - Physician Review Nursing Documentation Reviewed: Yes Family/Social History: Unknown Family HX Smoking Status: Never Smoked Hx Alcohol Use: Yes Frequency of alcohol use: Socially Hx Substance Use: No Allergies/Home Meds Allergies/Adverse Reactions: Allergies aspirin Adverse Reaction (Intermediate, Verified 09/05/17 17:03) PAIN Stomach pain Home Medications: Home Meds Medication Instructions Recorded Confirmed Pantoprazole [Protonix] 40 mg PO DAILY 08/01/18 08/01/18 Review of Systems - Physician Review All systems were reviewed & negative as marked: Yes - Review of Systems Constitutional: Normal Eyes: Normal ENT: Normal Respiratory: Normal Cardiovascular: Normal Gastrointestinal: Normal Genitourinary Female: Normal Musculoskeletal: Back Pain Skin: Normal Neurological: Normal Endocrine: Normal Hemo/Lymphatic: Normal Psychiatric: Normal Physical Exam Vital Signs Reviewed: Yes Vital Signs Temp Pulse Resp BP Pulse Ox 09/06/18 08:53 98.7 F 60 18 121/67 96 Temperature: Afebrile Blood Pressure: Normal Pulse: Regular Respiratory Rate: Normal Appearance: Positive for: Well-Appearing, Non-Toxic, Comfortable Pain Distress: None Mental Status: Positive for: Alert and Oriented X 3 - Systems Exam Head: Present: Atraumatic, Normocephalic Pupils: Present: PERRL Extroacular Muscles: Present: EOMI Conjunctiva: Present: Normal Mouth: Present: Moist Mucous Membranes Neck: Present: Normal Range of Motion Respiratory/Chest: Present: Clear to Auscultation, Good Air Exchange. No: Respiratory Distress, Accessory Muscle Use Cardiovascular: Present: Regular Rate and Rhythm, Normal S1, S2. No: Murmurs Abdomen: No: Tenderness, Distention, Peritoneal Signs Back: Present: Paraspinal Tenderness (Diffuse paralumbar tenderness), Pain with Leg Raise (Right leg). No: CVA Tenderness Upper Extremity: Present: Normal Inspection. No: Cyanosis, Edema Lower Extremity: Present: Normal Inspection. No: Edema Neurological: Present: GCS=15, CN II-XII Intact, Speech Normal Skin: Present: Warm, Dry, Normal Color. No: Rashes Psychiatric: Present: Alert, Oriented x 3, Normal Insight, Normal Concentration Medical Decision Making ED Course and Treatment: 09/07/18 19:52 PT present to ED for stated history. she was ambulatory and neurologically distress Her pain resolved in ED with medication She was referred to ortho - Medication Orders Current Medication Orders: Discontinued Medications Cyclobenzaprine HCl (Flexeril) 10 mg PO STAT STA Stop: 09/06/18 09:21 Last Admin: 09/06/18 10:00 Dose: 10 mg Ketorolac Tromethamine (Toradol) 30 mg IM STAT STA Stop: 09/06/18 09:20 Last Admin: 09/06/18 10:00 Dose: 30 mg MAR Pain Assessment Document 09/06/18 10:00 NGOZI (Rec: 09/06/18 10:00 NGOZI [id number]) Pain Reassessment Is this a pain reassessment? No Sleep Is patient sleeping during reassessment? No Presence of Pain Presence of Pain Yes Pain Scale Used Protocol: PSCALES Pain Scale Used Numeric IM Administration Charges Document 09/06/18 10:00 NGOZI (Rec: 09/06/18 10:00 NGOZI [id number]) Charges for Administration # of IM Administrations 1 Disposition/Present on Arrival - Present on Arrival Any Indicators Present on Arrival: No History of DVT/PE: No History of Uncontrolled Diabetes: No Urinary Catheter: No History of Decub. Ulcer: No History Surgical Site Infection Following: None - Disposition Have Diagnosis and Disposition been Completed?: Yes Diagnosis: Sciatica, Back pain Disposition: HOME/ ROUTINE Disposition Time: 10:35 Patient Plan: Discharge Condition: STABLE Discharge Instructions (ExitCare): Sciatica (DC) Additional Instructions: Follow up with your doctor/orthopedist Return to ED for any new or worsening symptoms Prescriptions: RX: traMADol [Ultram] 50 mg PO Q6 #12 tab Referrals: Severiano Le [Primary Care Provider] - Follow up with primary Mason Aguilera MD [Staff Provider] - Follow up with primary Forms: [facility] (Congolese)
[2018-09-06 11:52] VITALS: BP 105/51; PULSE 52; RESP 16; O2SAT 97
== END 2018-09-06 11:54 | disposition home or self-care (01) ==
LOC: ED 08:10
DX: M54.40 Lumbago with sciatica, unspecified side (principal)
CPT/HCPCS: 96372; 99283; J1885

== ENCOUNTER 2018-09-20 07:07 | Outpatient (CLI) | payer OTHER | END 2018-09-20 07:08 | disposition home or self-care (01) | LOC: RAD 07:07 ==

== ENCOUNTER 2018-12-20 11:33 | Emergency (ER) | payer OTHER ==
[2018-12-20 11:41] VITALS: BMI 36.2
[2018-12-20 11:44] VITALS: RESP 18; TEMP 97.8
[2018-12-20] MEDS ORDERED: Lidocaine 5% Patch TD STA (12:01)
--- NOTE | 2018-12-20 12:02 | ED PDOC ---
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 Pain is sharp, radiates from right lower back into right hip and down the right leg. She has been seen multiple times in the ED for similar complaints and is typically treated with flexeril and toradol with good relief. Pt has not followed up with an orthopedic doctor for this pain. She had an MRI in September 2018 that showed bulging discs at L4/L5 and L5/S1. Has not taken any medication for pain. Denies fever, chills, abdominal pain, numbness, weakness, paresthesia, saddle anesthesia, incontinence, urinary symptoms, vaginal bleeding/odor/discharge, SOB, chest pain, or any other associated complaints. Past Medical History - Provider Review Nursing Documentation Reviewed: Yes - Infectious Disease Hx of Infectious Diseases: None - Cardiac Hx Cardiac Disorders: No - Pulmonary Hx Asthma: Yes - Neurological Hx Migraine: Yes - HEENT Hx HEENT Disorder: No - Renal Hx Renal Disorder: No - Endocrine/Metabolic Hx Endocrine Disorders: Yes Other/Comment: Thyriod d/o - Hematological/Oncological Hx Blood Disorders: No - Integumentary Hx Dermatological Disorder: No - Musculoskeletal/Rheumatological Hx Arthritis: Yes - Gastrointestinal Hx Gastritis: Yes - Genitourinary/Gynecological Hx Genitourinary Disorders: No - Psychiatric Hx Psychophysiologic Disorder: No Hx Substance Use: No - Surgical History Hx Dilation and Curettage: Yes Hx Hysterectomy: Yes Other/Comment: Unilateral oophorectomy - Anesthesia Hx Anesthesia: No Family/Social History - Physician Review Nursing Documentation Reviewed: Yes Family/Social History: No Known Family HX Smoking Status: Never Smoked Hx Alcohol Use: Yes Hx Substance Use: No Allergies/Home Meds Allergies/Adverse Reactions: Allergies aspirin Adverse Reaction (Intermediate, Verified 12/20/18 11:41) PAIN Stomach pain Home Medications: Home Meds Medication Instructions Recorded Confirmed Pantoprazole [Protonix] 40 mg PO DAILY 08/01/18 08/01/18 Review of Systems - Review of Systems Constitutional: Normal. absent: Fevers Eyes: Normal. absent: Vision Changes Respiratory: Normal. absent: SOB, Cough Cardiovascular: Normal. absent: Chest Pain, Palpitations Gastrointestinal: Normal. absent: Abdominal Pain, Nausea, Vomiting Musculoskeletal: Back Pain, Other (right hip and leg pain) Skin: Normal. absent: Rash, Cellulitis Neurological: Normal. absent: Headache, Dizziness, Other (NO saddle anesthesia, numbness, weakness, paresthesias) Physical Exam Vital Signs Reviewed: Yes Vital Signs Temp Pulse Resp BP Pulse Ox 12/20/18 11:44 97.8 F 63 18 131/81 95 Temperature: Afebrile Blood Pressure: Normal Pulse: Regular Respiratory Rate: Normal Appearance: Positive for: Well-Appearing, Non-Toxic, Comfortable Pain Distress: None Mental Status: Positive for: Alert and Oriented X 3 - Systems Exam Head: Present: Atraumatic, Normocephalic Pupils: Present: PERRL Extroacular Muscles: Present: EOMI Conjunctiva: Present: Normal Mouth: Present: Moist Mucous Membranes Neck: Present: Normal Range of Motion Respiratory/Chest: Present: Clear to Auscultation, Good Air Exchange. No: Respiratory Distress, Accessory Muscle Use Cardiovascular: Present: Regular Rate and Rhythm, Normal S1, S2 Abdomen: Present: Normal Bowel Sounds. No: Tenderness, Distention, Peritoneal Signs Back: Present: Normal Inspection, Paraspinal Tenderness (right lumbar ), Pain with Leg Raise (right at 45 degrees). No: CVA Tenderness Upper Extremity: Present: Normal Inspection, Normal ROM, NORMAL PULSES, Neurovascularly Intact, Capillary Refill < 2s. No: Cyanosis, Edema, Temperature Abnormalties Lower Extremity: Present: Normal Inspection, NORMAL PULSES, Normal ROM, Tenderness (right lateral hip), Neurovascularly Intact, Capillary Refill < 2 s. No: Edema, CALF TENDERNESS, Temperature Abnormalties Neurological: Present: GCS=15, CN II-XII Intact, Speech Normal, Motor Func Grossly Intact, Normal Sensory Function, Gait Normal Skin: Present: Warm, Dry, Normal Color. No: Rashes Psychiatric: Present: Alert, Oriented x 3, Normal Insight, Normal Concentration, Normal Affect, Normal Mood Medical Decision Making ED Course and Treatment: Initial Plan: * Right Hip Xray * Right Leg Venous Duplex * Toradol * Flexeril 14:12 Patient reports complete resolution of pain with medication. Imaging negative for acute pathology Prelim venous duplex negative Advised PMD and orthopedic followup. Diagnostic testing results and plan of care discussed with patient. Strict instructions given regarding prescription use, importance of followup, and signs/symptoms to return to ER including numbness, weakness, paresthesia, or any other new/worsening symptoms. Pt verbalized understanding of discussion. Patient is A&Ox3, ambulating with steady gait, with vital signs stable for discharge. Disposition/Present on Arrival - Present on Arrival Any Indicators Present on Arrival: No History of DVT/PE: No History of Uncontrolled Diabetes: No Urinary Catheter: No History of Decub. Ulcer: No History Surgical Site Infection Following: None - Disposition Have Diagnosis and Disposition been Completed?: Yes Diagnosis: Hip pain Disposition: HOME/ ROUTINE Disposition Time: 13:50 Patient Plan: Discharge Condition: IMPROVED Discharge Instructions (ExitCare): Sciatica, Hip Pain (DC) Print Language: THAI Additional Instructions: Tylenol cada 6 horas segn sea necesario para el dolor. Parches de Lidoderm diarios, 12 horas, 12 horas de descanso. [place], no actividad vigorosa. Seguimiento con mdico ortopdico dentro de 2 sherman. Seguimiento con mdico primario en 2 sherman. Regrese a la main de emergencias con cualquier sntoma nuevo o que empeore. Prescriptions: Acetaminophen [Tylenol Extra Strength] 500 mg PO Q6 PRN #30 tablet PRN Reason: pain Lidocaine 5% [Lidoderm] 1 ea TD DAILY PRN #30 patch PRN Reason: Pain, Mild (1-3) Referrals: [facility] [place] - Follow up with primary Maite Garza MD [Staff Provider] - Follow up with primary Annmarie Garrison MD [Medical Doctor] - Follow up with primary Forms: [facility] (Beninese), WORK NOTE
--- NOTE | 2018-12-20 13:45 | RAD ---
Date of service: 12/20/2018 PROCEDURE: Pelvis and right hip HISTORY: right hip pain COMPARISON: TECHNIQUE: Four views FINDINGS: There is no evidence of fracture. There is no joint space narrowing. IMPRESSION: Negative study
[2018-12-20 14:03] VITALS: BP 136/78; PULSE 65; O2SAT 97
--- NOTE | 2018-12-20 17:03 | US ---
PROCEDURE: Right lower extremity venous US HISTORY: Leg pain and swelling. Evaluate for DVT. PHYSICIAN(S): Krishna Groves M.D. TECHNIQUE: Duplex sonography and color-flow Doppler with graded compression were used to evaluate the deep venous system of the right lower extremity. FINDINGS: The visualized deep venous system of the right lower extremity is sonographically normal and compressible. Normal waveforms and augmentation are seen. There is no sonographic evidence for deep venous thrombosis in the visualized segments of the right lower extremity. IMPRESSION: 1. No sonographic evidence for deep venous thrombosis in the visualized segments of the right lower extremity.
== END 2018-12-20 14:20 | disposition home or self-care (01) ==
LOC: ED 11:33
DX: M25.551 Pain in right hip (principal)
CPT/HCPCS: 73502; 93971; 96372; 99283; J1885